=== PATIENT | male | born 1950 | race Caucasian/White ===

== ENCOUNTER 2020-10-19 11:25 | Outpatient (CLI) | payer MEDICARE, SELFPAY ==
--- NOTE | ~2020-10-19 | XR_ITS ---
EXAMINATION: XR hand LT min 3V DATE: 10/19/2020 11:48 INDICATION: Pain at the first metatarsophalangeal joint. TECHNIQUE: 3 views of left hand were obtained. COMPARISON: None. FINDINGS: Bone alignment is normal. No fracture. There is mild osteoarthritis of triscaphe joint and moderate osteoarthritis of first carpometacarpal joint. There is moderate osteoarthritis of first-fou rth metacarpophalangeal joints. There is severe osteoarthritis of second distal interphalangeal joint , moderate osteoarthritis of first interphalangeal joint and third distal interphalangeal joint, and mild osteoarthritis of the other interphalangeal joints. IMPRESSION: 1. Polyarticular osteoarthritis. Reviewed, dictated and finalized at location A.
--- NOTE | ~2020-10-19 | XR_ITS ---
EXAMINATION: XR hand RT min 3V DATE: 10/19/2020 11:48 INDICATION: Pain at right first metacarpophalangeal joint. TECHNIQUE: 3 views of right hand were obtained. COMPARISON: None. FINDINGS: Bone alignment is normal. No fracture. There is mild osteoarthritis of triscaphe joint and moderate osteoarthritis of first-fourth metacarpophalangeal joints. There is severe osteoarthritis of third distal interphalangeal joint, moderate osteoarthritis of first interphalangeal joint and secon d and fourth distal interphalangeal joints, and mild osteoarthritis of the other interphalangeal join ts. IMPRESSION: 1. Polyarticular osteoarthritis. Reviewed, dictated and finalized at location A.
== END 2020-10-19 11:26 | disposition home or self-care (01) ==
PROVIDERS: PCP Family Medicine; Visit Provider Plastic Surgery
DX: M79.642 Pain in left hand (principal); M19.042 Primary osteoarthritis, left hand; M19.041 Primary osteoarthritis, right hand
CPT/HCPCS: 73130

== ENCOUNTER 2021-03-28 01:29 | Day surgery (SDC) | payer MEDICARE, SELFPAY ==
[2021-03-19 10:53] VITALS: BMI 30.9
--- NOTE | 2021-03-27 12:42 | WPDANESEPPF ---
Anes - Initial Pre Proc Eval Procedure: Operation Date: 03/28/21 07:30 Proposed Procedures p Left Trapezium Resection Arthroplasty with Arthrex Internal Brace - Miki Larsen MD Date/Time: 03/27/21 12:42 Surgeon: Miki Larsen MD Pre Op Diagnosis: left basal joint OA Patient Data Age: 71 Gender: M Height: 1.7 m Weight: 89.54 kg Allergies Allergy/AdvReac Type Severity Reaction Status Date / Time iohexol AdvReac Anaphylaxis Verified 03/19/21 10:43 [From contrast - CT, X-RAY] rosuvastatin [From Crestor] AdvReac Joint Pain Verified 03/19/21 10:43 sulfamethoxazole AdvReac Nausea and Verified 03/19/21 10:43 [From Bactrim] Vomiting trimethoprim [From Bactrim] AdvReac Nausea and Verified 03/19/21 10:43 Vomiting Home Medications Medication Instructions Recorded Confirmed Type alprazolam 0.5 mg PO BID PRN 03/19/21 03/19/21 History amlodipine 5 mg QAM 03/19/21 03/19/21 History amoxicillin 1,000 mg PO DAILY PRN 03/19/21 03/19/21 History aspirin [Aspir-81] 81 mg PO DAILY 03/19/21 03/19/21 History atorvastatin 80 mg QAM 03/19/21 03/19/21 History clindamycin phosphate [Clindamycin] 1 applic TOPICAL DAILY PRN 03/19/21 03/19/21 History donepezil 10 mg QAM 03/19/21 03/19/21 History metformin 500 mg PO QAM 03/19/21 03/19/21 History minocycline 20 mg QAM 03/19/21 03/19/21 History omeprazole 20 mg QAM 03/19/21 03/19/21 History rivastigmine tartrate 1.5 mg BID 03/19/21 03/19/21 History semaglutide [Ozempic] 0.5 mg SUBCUT WEEKLY 03/19/21 03/19/21 History sildenafil 100 mg HS PRN 03/19/21 03/19/21 History Patient hx anesthesia problems: none Family hx anesthesia problems: none Results Review: All pre-operative results and documents have been reviewed as part of the pre-operative evaluation. PMFSH Past Medical History Medical History (Updated 03/27/21 @ 12:43 by Catracho Anderson DO) Anxiety Diabetes type 2, controlled GERD (gastroesophageal reflux disease) Hyperlipidemia Hypertension LORAINE (obstructive sleep apnea) Social History Social History Smoking status: Former smoker Second hand tobacco smoke exposure: No Additional smoking assessment comments: SPOUSE STATES SMOKED IN THE PAST, QUIT YEARS AGO Substance use: never Substance use type: does not use Living arrangements: with family Spiritual care concerns: No Anes - Eval Final PreProcedure Day of Procedure 03/27/21 12:42 Patient weight: obese Heart: regular rate and rhythm Lungs: clear to auscultation and normal air movement Airway: Mallampati scale class II Neurological: alert and oriented Last oral intake: >/= 8 hours ASA classification: III Emergent: no Anesthetic plan: proceed Anesthesia type and monitoring: general LMA and standard monitoring Results Review: All pre-operative results and documents have been reviewed as part of the pre-operative evaluation. Informed Consent: The patient's anesthetic plan and its attendant risks and benefits were discussed with the patient/family/POA. Questions were solicited and answers provided to the satisfaction of the patient/family/POA.
[2021-03-28] VITALS (8 sets, daily range): BP systolic 112–133; BP diastolic 74–95; PULSE 75–99; RESP 12–18; TEMP 36.2–36.6; O2SAT 96–98
--- NOTE | ~2021-03-28 | XR_ITS ---
EXAMINATION: XR surgery orthopedic DATE: 03/28/2021 09:17 INDICATION: Left thumb arthroplasty TECHNIQUE: 4 fluoroscopic images of the radial aspect of the carpus were obtained during procedure pe rformed by Dr. Larsen. Radiologist was not present for the imaging or procedure. The amount of fluoros copy time used during this procedure was minutes. COMPARISON: 10/19/2020 FINDINGS: Interval resection of the trapezium with a postoperative gas and a few residual small bone fragments at the resection bed. Images demonstrate change in position of the first metacarpal likely resulting from intermittent contraction on the thumb. No fractures. IMPRESSION: 1. Expected appearance post trapezium resection for left first carpal metacarpal suspension arthropla sty. Reviewed, dictated and finalized at location B. IMPRESSION: 1. Expected appearance post trapezium resection for left first carpal metacarpa l suspension arthroplasty.
[2021-03-28] MEDS: LACTATED RINGERS 1,000 ML 30 ML IV CONT ×2 (06:30→09:20)
[2021-03-28 06:48] LABS: Glucose Point of Care 99 mg/dl (65-105)
--- NOTE | 2021-03-28 07:10 | WPDHPUPDATE1 ---
History and Physical Update Update Date/Time: 03/28/21 07:10 History and Physical has been reviewed, including an updated exam of the patient. There are NO changes in the patient's condition. Risks, benefits, and alternatives have been discussed and questions answered. Patient agrees to proceed with procedure.
[2021-03-28] MEDS: ceFAZolin 2 GM/D5W 50 ML 2 GM/50 ML BAG IVPB (07:32)
[2021-03-28] MEDS: LIDO 1%/EPINEPHRINE 1:100,000 50 ML VIAL INFILTRATE (09:08)
[2021-03-28] MEDS: BUPIVACAINE HCL 0.5% PF 30 ML VIAL INFILTRATE (09:09)
[2021-03-28 09:28] LABS: Glucose Point of Care 94 mg/dl (65-105)
--- NOTE | 2021-03-28 09:37 | P.OP_ITS ---
Procedure Note - Detailed Date of Procedure 03/28/21 Pre-op Diagnosis left basal joint OA Post-op Diagnosis same Procedure Performed Left trapezium resection arthroplasty with Arthrex internal brace Surgeon Miki Larsen MD [employer] Marked walker Anesthesia general Indications Failed conservative management Findings Severe osteoarthritis Description of Procedure See the left radial wrist was marked in the holding area. The patient was then taken to the operating room and placed supine on the operating table. A time- out was held and confirmed. He was given general anesthesia. The left upper extremity was prepped and draped in usual fashion. The the site was marked for the incision and locally infiltrated with 1% lidocaine with epinephrine. A 3 in Charan wrap was used to exsanguinate and the tourniquet was inflated to 250 mmHg. The incision was made as marked and dissection was carried carefully to the joint capsule. A fairly large branch of the radial nerve was identified along the palmar aspect. No others were noted. A couple of small veins were coagulated. The capsule was opened in the interspace between the EPB and APL. It was incised to bone with a 15 blade. With knife and [place] dissection the radial aspect of the trapezium was dissected for visualization. The trapezium was split with an osteotome. That was removed piecemeal with a rongeur or . The entire bone was removed and this was confirmed by C-arm images. The internal brace set was opened and the appropriate site for the 2nd metacarpal anchor was determined and drilled. The anchor lock at that position was inserted. The radial base of the 1st metacarpal was dissected to allow appropriate placement of the 2nd anchor. This was drilled and applied with the thumb abducted and moderately distracted. The operative site was irrigated and the capsule repaired with 4-0 Vicryl suture and the skin was closed with the running intradermal 4-0 Vicryl. A soft bandage with the radially based thumb spica splint was applied that allowed IP joint active range of motion. Prior to that the area had been infiltrated with 8 milliliter of 0.5% Marcaine. The patient was given 2 g of Ancef in preop. Implants Arthrex internal brace Estimated Blood Loss 2 Tourniquet Time 6 Drains No Packing No Pathology none sent Complications No immediate complications Condition stable Disposition PACU
== END 2021-03-28 11:25 | disposition home or self-care (01) ==
PROVIDERS: PCP Family Medicine; Visit Provider Plastic Surgery
PROC: (CPT 25447; principal; 2021-03-28 07:30)
DX: M18.12 Unilateral primary osteoarthritis of first carpometacarpal joint, left hand (principal); E11.9 Type 2 diabetes mellitus without complications; I10 Essential (primary) hypertension; E78.5 Hyperlipidemia, unspecified; G47.33 Obstructive sleep apnea (adult) (pediatric); K21.9 Gastro-esophageal reflux disease without esophagitis; F41.9 Anxiety disorder, unspecified; Z87.891 Personal history of nicotine dependence; E66.9 Obesity, unspecified; Z68.31 Body mass index [BMI] 31.0-31.9, adult; Z79.84 Long term (current) use of oral hypoglycemic drugs; Z79.82 Long term (current) use of aspirin; Z79.899 Other long term (current) drug therapy
CPT/HCPCS: 25447; 82948; A9270; C1713; J0690; J2405; J2704; J3010; J7120